=== PATIENT | female | born 1955 | race Caucasian/White ===

== ENCOUNTER 2017-10-07 07:40 | Day surgery (SDC) | payer OTHER, SELFPAY ==
[2017-10-07] MEDS: PROPARACAINE 0.5% OPHTH SOL 2 DROPS EYE-OP (08:09)
[2017-10-07 08:12] VITALS: BP 159/85; PULSE 65; RESP 18; TEMP 37.2; O2SAT 100; BMI 25.6
[2017-10-07] MEDS: CATARACT EYE COMPOUND (10 DROPS/SYRINGE) 3 DROPS EYE-OP (08:12)
--- NOTE | 2017-10-07 09:21 | P.OP.PRE_ITS ---
Pre-operative Note Interval Note Changes: No
--- NOTE | 2017-10-07 09:21 | P.OP_ITS ---
Operative Date/Time/Diagnoses Pre-op diagnosis: Cataract Right eye Post-op diagnosis: same Procedure & Clinicians Procedure: Cataract Surgery Same procedure as scheduled: Yes Surgeon: Diego Bland Anesthesia Type: MAC +/- and Sedation Operative Notes Procedure in detail: Patient brought to the operating suite. Tetracaine drops placed in the right eye. Patient was prepped and draped in sterile manner. Wire lid speculum was placed in the eye. Betadine drops were placed on the eye. This was irrigated. Lidocaine jelly was placed on the eye. A paracentesis port was created with a side-port blade. 0.1 mL 1% preservative free lidocaine was injected into the anterior chamber. The anterior chamber was deepened with viscoelastic. 2.6 mm keratome was used to create a temporal clear corneal incision. Cystotome and Utrata forceps were used to create continuous tear capsulorrhexis. Balanced salt solution was used to hydro dissect the nucleus. The phacoemulsification handpiece was inserted and the nucleus was removed using the stop and chop technique. The irrigation aspiration handpiece was inserted and the remaining cortex was removed. Anterior chamber was deepened with viscoelastic. An Albarran ZCB00 intraocular lens with a power of 14.5 was injected into the capsular bag. Irrigation aspiration handpiece was inserted and the remaining viscoelastic was removed. Incision was hydrated with balanced salt solution and found to be leak free with pressure with Weck- Destiney sponges. 0.1 mL Vigamox injected anterior chamber. 0.3 mL Kenalog 10 mg was injected subconjunctivally. Lid speculum was removed. The patient left the operating room in excellent condition. Complications: none Condition: stable Disposition: same day surgery
--- NOTE | 2017-10-07 09:21 | PM.PREOP ---
Pre-operative Note Interval Note Changes: No
--- NOTE | 2017-10-07 09:26 | SUR.OPER ---
Supine on eye stretcher, head on extension cradle secured with tape. Arms tucked at sides with blanket. Pillow under knees.
[2017-10-07] MEDS: TRIAMCINOLONE 50 MG/5 ML VIAL INJ (09:30)
[2017-10-07] MEDS: PHENYLEPHRINE/LIDOCAINE 3ML VIAL (OR) EYE-OP (09:33)
[2017-10-07] MEDS: TETRACAINE 0.5% OPHTH DROPS 15 ML 2 DROPS EYE-RIGHT (09:34)
[2017-10-07] MEDS: CHONDROIDTIN/SOD HYALURONATE 1.05 ML SYRINGE INTRAOCULA (09:34)
[2017-10-07] MEDS: LIDOCAINE JELLY 2% 5 ML 1 APPLIC TOP (09:35)
[2017-10-07] MEDS: MOXIFLOXACIN OPHTH DROPS 3 ML BOTTLE 2 DROPS INJ (09:35)
[2017-10-07 09:45] VITALS: BP 151/80; PULSE 65; RESP 18; TEMP 36.7; O2SAT 97
[2017-10-07 10:01] VITALS: PULSE 63; RESP 16; TEMP 36.7; O2SAT 98
[2017-10-07 10:03] VITALS: BP 162/76; PULSE 65; RESP 18; O2SAT 98
[2017-10-07 10:09] VITALS: BP 167/75; PULSE 72; RESP 18; O2SAT 98
== END 2017-10-07 10:15 ==
LOC: OR 07:42
PROVIDERS: PCP Physician Assistant; Visit Provider Ophthalmology
DX: H25.11 Age-related nuclear cataract, right eye (principal); E11.40 Type 2 diabetes mellitus with diabetic neuropathy, unspecified; I10 Essential (primary) hypertension; R42 Dizziness and giddiness; Z79.4 Long term (current) use of insulin
CPT/HCPCS: J2250; J2704; J3010; J3301

== ENCOUNTER 2017-10-28 07:15 | Day surgery (SDC) | payer OTHER, SELFPAY ==
[2017-10-28] MEDS: PROPARACAINE 0.5% OPHTH SOL 2 DROPS EYE-OP (08:06)
[2017-10-28] MEDS: CATARACT EYE COMPOUND (10 DROPS/SYRINGE) 3 DROPS EYE-OP (08:10)
[2017-10-28 08:17] VITALS: BP 125/71; PULSE 60; RESP 15; TEMP 36.8; O2SAT 99; BMI 24.7
--- NOTE | 2017-10-28 08:36 | P.OP.PRE_ITS ---
Pre-operative Note Interval Note Changes: No
--- NOTE | 2017-10-28 08:36 | PM.PREOP ---
Pre-operative Note Interval Note Changes: No
--- NOTE | 2017-10-28 08:37 | P.OP_ITS ---
Operative Date/Time/Diagnoses Pre-op diagnosis: Cataract Left eye Post-op diagnosis: same Procedure & Clinicians Surgeon: Diego Bland Anesthesia Type: MAC +/- and Sedation Operative Notes Procedure in detail: Patient brought to the operating suite. Tetracaine drops placed in the left eye. Patient was prepped and draped in sterile manner. Wire lid speculum was placed in the eye. Betadine drops were placed on the eye. This was irrigated. Lidocaine jelly was placed on the eye. A paracentesis port was created with a side-port blade. 0.1 mL 1% preservative free lidocaine was injected into the anterior chamber. The anterior chamber was deepened with viscoelastic. 2.6 mm keratome was used to create a temporal clear corneal incision. Cystotome and Utrata forceps were used to create continuous tear capsulorrhexis. Balanced salt solution was used to hydro dissect the nucleus. The phacoemulsification handpiece was inserted and the nucleus was removed using the stop and chop technique. The irrigation aspiration handpiece was inserted and the remaining cortex was removed. Anterior chamber was deepened with viscoelastic. An Albarran ZCB00 intraocular lens with a power of 15.5 was injected into the capsular bag. Irrigation aspiration handpiece was inserted and the remaining viscoelastic was removed. Incision was hydrated with balanced salt solution and found to be leak free with pressure with Weck- Destiney sponges. 0.1 mL Vigamox injected anterior chamber. 0.3 mL Kenalog 10 mg was injected subconjunctivally. Lid speculum was removed. The patient left the operating room in excellent condition. Complications: none Condition: stable Disposition: same day surgery
--- NOTE | 2017-10-28 08:40 | SUR.OPER ---
Supine on eye stretcher, head on extension cradle secured with tape. Arms tucked at sides with blanket. Pillow under knees.
[2017-10-28] MEDS: PHENYLEPHRINE/LIDOCAINE 3ML VIAL (OR) EYE-OP (08:46)
[2017-10-28] MEDS: TRIAMCINOLONE 50 MG/5 ML VIAL INJ (08:46)
[2017-10-28] MEDS: MOXIFLOXACIN OPHTH DROPS 3 ML BOTTLE 2 DROPS INJ (08:46)
[2017-10-28] MEDS: TETRACAINE 0.5% OPHTH DROPS 15 ML 2 DROPS EYE-LEFT (08:47)
[2017-10-28] MEDS: LIDOCAINE JELLY 2% 5 ML 1 APPLIC TOP (08:47)
[2017-10-28] MEDS: CHONDROIDTIN/SOD HYALURONATE 1.05 ML SYRINGE INTRAOCULA (08:47)
[2017-10-28] MEDS: BALANCED SALT IRRIG SOLN NO.2 500 ML, EPINEPHrine 1 MG IRR (08:48)
[2017-10-28 09:00] VITALS: BP 127/74; PULSE 62; RESP 16; TEMP 36.4; O2SAT 97
== END 2017-10-28 09:21 | disposition home or self-care (01) ==
PROVIDERS: PCP Physician Assistant; Visit Provider Ophthalmology
DX: H25.12 Age-related nuclear cataract, left eye (principal); Z79.84 Long term (current) use of oral hypoglycemic drugs; I10 Essential (primary) hypertension; E11.42 Type 2 diabetes mellitus with diabetic polyneuropathy; R42 Dizziness and giddiness
CPT/HCPCS: J0171; J3301

== ENCOUNTER 2018-03-16 07:56 | Emergency (ER) | payer OTHER, SELFPAY ==
--- NOTE | 2018-03-16 08:02 | ED_ITS ---
HPI - Fall General Chief Complaint: Fall Stated Complaint: FALL Time Seen by Provider: 03/16/18 08:00 Source: patient Mode of arrival: ambulatory Limitations: no limitations History of Present Illness HPI Narrative: 62-year-old female not on anticoagulation here for evaluation of facial injuries. She stated that she was walking out her front door this morning where she tripped over her to neighbor's dogs. States she landed on her face. No loss of conscious. No neck pain. Has abrasions on her face. No problems breathing. Related Data Home Medications Medication Instructions Recorded Confirmed ASPIRIN (Aspirin Low Dose) 81 mg PO DAILY #0 12/26/09 10/28/17 furosemide 40 mg PO DAILY 10/07/17 10/28/17 insulin glargine [Lantus U-100 34 unit SUB-Q DAILY 10/07/17 10/28/17 Insulin] metoprolol succinate 25 mg PO BID 10/07/17 10/28/17 rosuvastatin [Crestor] 20 mg PO DAILY 10/07/17 10/28/17 trazodone 50 mg PO DAILY 10/07/17 10/28/17 venlafaxine [Effexor XR] 150 mg PO DAILY 10/07/17 10/28/17 Allergies Allergy/AdvReac Type Severity Reaction Status Date / Time adhesive Allergy Severe HIVES FROM Verified 03/16/18 09:30 MASTISOL, BLISTERS FROM STERI-STRIP AND TEGADERM metoclopramide Allergy Intermediate HIVES, Verified 03/16/18 09:30 ITCHING codeine Allergy Mild HIVES, Verified 03/16/18 09:30 ITCHING Review of Systems Constitutional Denies fever(s), Reports headache(s) and Denies weakness Eyes Denies change in vision, Denies diplopia and Denies loss of vision ENT Ears, Nose, Mouth, and Throat: Reports dental pain, Denies vertigo, Reports headache(s), Reports lip swelling, Denies neck pain, Reports nose pain and Denies disequilibrium Cardiovascular Denies chest pain and Denies dyspnea Respiratory Denies dyspnea Gastrointestinal Gastrointestinal: Denies abdominal pain Musculoskeletal Denies neck pain and Denies numbness Integumentary/Breasts Reports lesions Neurologic Denies vertigo, Reports headache(s), Denies focal weakness, Denies loss of vision, Denies numbness, Denies disequilibrium and Denies weakness Hematologic/Lymphatic Comments: Not on anticoagulation Allergic/Immunologic Reports lip swelling Exam Initial Vital Signs Initial Vital Signs: Vital Signs Temperature 97.4 F L 03/16/18 08:14 Pulse Rate 66 03/16/18 08:14 Respiratory Rate 18 03/16/18 08:14 Blood Pressure 163/84 H 03/16/18 08:14 Pulse Oximetry 100 03/16/18 08:14 Const General: cooperative, comfortable, well developed, well groomed and No acute distress Orientation: alert, awake and oriented x3 HENMT Head: No hematoma Ears: TM's normal bilaterally Nose: nares normal, septum normal, No epistaxis, No septum abnormal and other ( Abrasion over the bridge of nose) Face and sinus: other (Abrasion above right eye and above right-sided lip) Mouth: oral mucosae normal Teeth and gingiva: other (Right front tooth tender to palpation but not displaced. No fractures noted) Eyes Pupils: PERRL EOM: EOM intact bilaterally Resp Effort & Inspection: normal respiratory effort Cardio Rate: regular rate Back/Spine/Pelvis Cervical Spine: No collar present, No cervical muscular tenderness, No pain with cervical ROM, No cervical spasm, No cervical spinal tenderness and No step off deformity Skin Other: Abrasion above right eye, over bridge of nose, above right lip. No indication for suturing. Neuro General: alert, awake and oriented x3 Cognition: normal cognition Speech: speech normal Gait: normal gait Motor: muscle tone normal throughout Sensory Exam: no sensory deficits noted Extrem General: normal to inspection and capillary refill normal Other: Moves all 4 extremities spontaneously without pain Psych Appearance: grossly normal and well kempt [facility] Medical History Hyperlipidemia (Acute) Hypertension (Acute) Surgical History No pertinent past surgical history (Acute) Social History household members: spouse Smoking Status: Former smoker Procedures Laceration Repair Laceration 1: Site: face Side (If applicable): right Size (cm): 1 Description: irregular Depth: simple, single layer Local Anesthetic: lidocaine 1% Amount of anesthesia used (mL): 2 Pre-repair: wound explored Skin layer closed with: other (Chromic) Size (cm): 5-0 Number of sutures: 2 Technique: simple, interrupted Course Orders Ordered: Discontinued Medications Diphtheria/Tetanus/Acell Pertussis (Adacel) 0.5 ml IM .ONCE ONE Stop: 03/16/18 08:20 Last Admin: 03/16/18 08:44 Dose: 0.5 ml Vital Signs - 8 hr 03/16/18 08:14 Temperature 97.4 F L Pulse Rate 66 Respiratory Rate 18 Blood Pressure 163/84 H Pulse Oximetry 100 MDM - Fall MDM Narrative Medical decision making narrative: Patient is neurovascularly intact. No step- off deformities with palpation around the orbital rims. Does have some tenderness to palpation over the nasal bone however no septal hematoma and no deformity off midline. Facial abrasions were noted. The upper lip laceration was closed with 2 chromic stitches. Maxilla intact. Discussed options with the patient to include facial to CT to evaluate for fractures however the patient declined this. We did discuss that there could potentially be a fracture that needs surgical intervention. She expressed understanding but would like to hold on this. No other injuries reported from the event. This was a mechanical fall. Patient was given care instructions. And return precautions. She expressed understanding and agreement with plan. Discharge Plan Departure Patient Disposition: Home Clinical Impression: Abrasion of face, Face lacerations, Fall Instructions: DI for Laceration Repair -- Simple, DI for Abrasion Activity Restrictions/Additional Instructions: The 2 stitches that were placed in your upper lip are absorbable and should come out on their own. You can shower like normal. I would recommend icing her face like we discussed. Return to the emergency department for any new or worsening symptoms Prescriptions: No Action ASPIRIN (Aspirin Low Dose) 81 mg PO DAILY Qty: 0 RF: 0 furosemide 40 mg Tablet 40 mg PO DAILY RF: 0 insulin glargine [Lantus U-100 Insulin] 100 unit/mL Solution 34 unit SUB-Q DAILY RF: 0 trazodone 50 mg Tablet 50 mg PO DAILY RF: 0 venlafaxine [Effexor XR] 150 mg Capsule,Extended Release 24hr 150 mg PO DAILY RF: 0 metoprolol succinate 25 mg Tablet Extended Release 24 Hr 25 mg PO BID RF: 0 rosuvastatin [Crestor] 20 mg Tablet 20 mg PO DAILY RF: 0
[2018-03-16 08:14] VITALS: BP 163/84; PULSE 66; RESP 18; TEMP 36.3; O2SAT 100
[2018-03-16] MEDS: TET,DIPH,PERTUSS(ACELL),VAC/PF 0.5 ML SYRINGE IM (08:44)
[2018-03-16 09:48] VITALS: BP 142/72; PULSE 80; RESP 14; O2SAT 99
== END 2018-03-16 09:50 | disposition home or self-care (01) ==
PROVIDERS: Emergency Provider Emergency Medicine; PCP Physician Assistant
DX: S01.81XA Laceration without foreign body of other part of head, initial encounter (principal); W01.0XXA Fall on same level from slipping, tripping and stumbling without subsequent striking against object, initial encounter
CPT/HCPCS: 12011; 90471; 99283; 90715

== ENCOUNTER → 2020-12-26 10:12 | Outpatient (ROUT) | payer MEDICARE, OTHER, SELFPAY ==
[2020-12-26 13:08] LABS: COVID19 -Nasal RAPID Negative (Negative)
== END ==
PROVIDERS: PCP Physician Assistant; Visit Provider Physician Assistant
DX: Z20.822 Contact with and (suspected) exposure to COVID-19 (principal)
CPT/HCPCS: 87635